=== PATIENT | female | born 1965 | race Caucasian/White ===

== ENCOUNTER 2017-08-28 15:07 | Inpatient (IN) | payer OTHER ==
[~2017-08-28] VITALS: Ht 170.2 cm; Wt 122.1 kg
--- NOTE | ~2017-08-28 | HC ---
[facility] [place] [address] CONSULTATION Name: BLAISE REES Room #: 209-P [facility] IN M.R.#: [id number] Admission: 08/28/17 Attend Phys: Cesar Gonzalez MD Discharge: 08/29/17 Date of : 65 Report #: [id number] THIS REPORT FOR: //name// CC: FAM unknown Cesar Gonzalez HISTORY OF PRESENT ILLNESS: A 52-year-old female admitted with some left-sided chest and shoulder discomfort associated with some hypertension. She has a history of mild coronary disease from a catheterization done actually 3 years ago, in 07/07/2014. He had 30% RCA lesion, minimal LAD disease and circumflex. LV function was preserved. In any event, she was ruled out for infarct. She feels better. She has been fatigued in the last 3 days with some very atypical left shoulder pain. Potassium 4.2, creatinine 0.8. Troponin is negative times 4. I think we are now done ordering troponins. Lipids have not been elevated. H and H was 12 and 36. A chest x-ray was unremarkable. PAST MEDICAL HISTORY: Positive for some hypertension, hysterectomy, cholecystectomy, left breast mastectomy for breast cancer, appendectomy, right foot surgery, varicose veins and some depression issues. 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 She is . She has children. No tobacco or alcohol use. FAMILY HISTORY: There was a brother that may have had some coronary disease prematurely. ALLERGIES: MORPHINE AND VANCOMYCIN, and possibly DAPTOMYCIN. REVIEW OF SYSTEMS: Essentially negative except for stated above, some intermittent constipation issues. PHYSICAL EXAMINATION: VITAL SIGNS: Blood pressure 140/90, pulse 70. HEENT: Eyes ____ xanthelasmas. Pharynx is clear. NECK: Shows preserved upstrokes without JVD or bruits. LUNGS: Clear. CARDIAC: Regular rate and rhythm, S1, S2. ABDOMEN: Soft. No HSM, no abdominal bruit. EXTREMITIES: Reveal no edema. Distal pulses were intact. NEUROLOGIC: Nonfocal. SKIN: Warm and dry without xanthoma or ulcer. MUSCULOSKELETAL: No gross joint deformity. There is a fair amount of lower extremity varicosities noted. ASSESSMENT: 1. Chest pain, atypical. 2. Labile hypertension. [address] [address] CONSULTATION Name: BLAISE REES Room #: 209-P [facility] IN M.R.#: [id number] Admission: 08/28/17 Attend Phys: Cesar Gonzalez MD Discharge: 08/29/17 Date of : 65 Report #: [id number] 3. Hypercholesterolemia. RECOMMENDATIONS AND PLAN: The patient was on lisinopril 10, I would increase that dose to 40 mg a day. Continue with the aspirin, Topamax, levothyroxine, vitamin D3 and Lipitor 20. Certainly could add additional agents as needed. I will plan an outpatient stress echo on her early this following week. Up and ambulating without discomfort. I would discharge home. It looks like blood pressure is better controlled. Metoprolol has been added, I will leave that up to the hospitalist to continue, but I would increase lisinopril to 40 mg and outpatient stress echo. Although I suspect there is not likely there has been significant progression of coronary artery disease, but objective testing would need to be done to confirm this. She is pain free and would do that as an outpatient. Thank you for asking me to assist in the care of this patient. <ELECTRONICALLY SIGNED> By: Pito Del Angel MD, FACC 09/01/17 0912 [id number] Pito Del Angel MD, FACC /nt
--- NOTE | ~2017-08-28 | EKG ---
[address] [address] ELECTROCARDIOGRAM REPORT Name: BLAISE REES Room #: 170-10 ADM IN M.R.#: [id number] Admission: 08/28/17 Attend Phys: Cesar Gonzalez MD Discharge: Date of : 65 Report #: [id number] THIS REPORT FOR: //name// [facility] ED Test Date: 2017-08-28 Test Time: 15:55:29 Pat Name: BLAISE REES Department: Room: 170 Gender: F Principal Architect: JOANNE : 1965 Requested By: Alfred Fan Order Number: [id number] MD: Paul Alvarez Measurements Intervals [place] Rate: 75 P: 9 CO: 139 QRS: 12 QRSD: 100 T: 11 QT: 385 QTc: 430 Interpretive Statements Sinus rhythm Normal Compared to ECG 07/19/2014 20:23:29 No significant changes Electronically Signed On 08-28-2017 17:17:27 CDT by Paul Alvarez [email or web address] <ELECTRONICALLY SIGNED> By: Paul Alvarez MD, [facility] 08/28/17 1717 1555 1558 Paul Alvarez MD, FACC /EPI
[~2017-08-28 15:07] MED LIST: ACIDOPHILUS100 MG PO; ASPIR-LOW81 MG PO; ASPIRIN325 PO; HYDROCODON-ACE1 EAC7 PO; LEVOTHYROXIN0.112 M1 PO; LIPITOR20 MG PO; LISINOPRIL10 MG PO; PHENERGAN 25 MG25 M1 PO; TIROSINT100 MCG PO; TOPAMAX25 M1 PO; VITAMIN D1000 UNI2 PO
[2017-08-28 15:08] VITALS: BP 178/117
[2017-08-28 15:56] LABS: ABSOLUTE NEUTROPHILS 6.1 thou/uL (1.4-8.2); BASOPHILS 0.9 % (0.0-2.0); EOSINOPHILS 2.7 % (0.0-3.0); HEMATOCRIT 39.6 % (37.0-47.0); LYMPHOCYTES 29.9 % (24.0-44.0); MANUAL DIFF NO; MCH 30.6 pg (26.0-34.0); MCHC 32.8 g/dL (28.0-37.0); MCV 93.3 fL (80.0-100.0); MONOCYTES 7.6 % (1.0-8.0); PLATELET COUNT 296 thou/uL (150-400); POLYS 58.9 % (36.0-66.0); RBC 4.25 mil/uL (4.20-5.00); RDW 14.2 % (10.5-14.5); WBC 10.3 thou/uL (4.0-11.0)
[2017-08-28 16:02] LABS: ANION GAP 11 mmol/L (7-16); BUN 15 mg/dL (7-18); CALCIUM 9.2 mg/dL (8.5-10.1); CHLORIDE 104 mmol/L (98-107); CO2 23 mmol/L (21-32); CREATININE 0.8 mg/dL (0.6-1.0); GLUCOSE 86 mg/dL (74-106); POTASSIUM 4.1 mmol/L (3.5-5.1); SODIUM 138 mmol/L (136-145)
[2017-08-28 16:10] LABS: ALBUMIN 3.8 g/dL (3.4-5.0); ALKALINE PHOSPHATASE 94 U/L (46-116); SGOT 34 U/L (15-37); SGPT 43 U/L (30-65); TOTAL BILIRUBIN 0.5 mg/dL (<0.1-1.0); TOTAL PROTEIN 7.4 g/dL (6.4-8.2); TROPONIN-I < 0.04 ng/mL (<0.06)
[2017-08-28 17:31] VITALS: BP 150/87
[2017-08-28 18:49] VITALS: BP 149/84
[2017-08-28 19:08] VITALS: BP 146/92
[2017-08-28 23:40] VITALS: BP 126/89
[2017-08-29] MEDS ORDERED: PROTONIX40 M1 PO (00:28)
[2017-08-29] MEDS ORDERED: IBUPROFEN 400400 M2 PO (00:29)
[2017-08-29 05:05] VITALS: BP 146/90
[2017-08-29 05:26] LABS: HEMATOCRIT 36.3 % (37.0-47.0); HEMOGLOBIN 12.1 gm/dL (12.0-15.0); MCH 30.7 pg (26.0-34.0); MCHC 33.3 g/dL (28.0-37.0); MCV 92.3 fL (80.0-100.0); RBC 3.93 mil/uL (4.20-5.00); RDW 13.7 % (10.5-14.5); WBC 7.6 thou/uL (4.0-11.0)
[2017-08-29 05:42] LABS: ANION GAP 7 mmol/L (7-16); BUN 14 mg/dL (7-18); CALCIUM 8.9 mg/dL (8.5-10.1); CHLORIDE 106 mmol/L (98-107); CO2 27 mmol/L (21-32); CREATININE 0.8 mg/dL (0.6-1.0); GLUCOSE 93 mg/dL (74-106); POTASSIUM 4.2 mmol/L (3.5-5.1); SODIUM 140 mmol/L (136-145); TROPONIN-I < 0.04 ng/mL (<0.06)
[2017-08-29 09:00] VITALS: BP 141/99
[2017-08-29] MEDS ORDERED: LOPRESSOR25 PO (10:21)
[2017-08-29] MEDS ORDERED: PRINIVIL20 MG PO (10:22)
[2017-08-29 10:38] VITALS: BP 141/99
[2017-08-29 10:46] VITALS: BP 141/99
== END 2017-08-29 11:25 | disposition home or self-care (01) | DRG 303 ==
LOC: ER 15:07 → EROBS 16:41 → 2N 18:11
PROVIDERS: Hospitalist; Physician Assistant
DX: I25.110 Atherosclerotic heart disease of native coronary artery with unstable angina pectoris (principal); Z68.41 Body mass index [BMI] 40.0-44.9, adult; I10 Essential (primary) hypertension; E78.00 Pure hypercholesterolemia, unspecified; E03.9 Hypothyroidism, unspecified; I16.0 Hypertensive urgency; E66.9 Obesity, unspecified; F32.9 Major depressive disorder, single episode, unspecified; Z85.3 Personal history of malignant neoplasm of breast; Z90.12 Acquired absence of left breast and nipple; Z90.49 Acquired absence of other specified parts of digestive tract; Z90.710 Acquired absence of both cervix and uterus; Z79.899 Other long term (current) drug therapy; Z79.82 Long term (current) use of aspirin; Z88.6 Allergy status to analgesic agent; Z88.1 Allergy status to other antibiotic agents; Z82.49 Family history of ischemic heart disease and other diseases of the circulatory system; Z23 Encounter for immunization
CPT/HCPCS: 10194